=== PATIENT | male | born 1975 | race Caucasian/White ===

== ENCOUNTER 2019-06-22 04:54 | Emergency (ER) | payer OTHER ==
[~2019-06-22] VITALS: Ht 167.6 cm; Wt 142.6 kg
[2019-06-22 06:00] LABS: BASOPHIL % 0.7 % (0-2); PLATELET COUNT 259 x10^3mcL (130-400); RED CELL DISTRIBUTION WIDTH 12.9 % (11.5-14.5)
[2019-06-22 06:02] LABS: CARBON DIOXIDE 28.6 mmol/L (21-32); CHLORIDE SERUM 99 mmol/L (98-107); CREATININE SERUM 0.8 mg/dL (0.7-1.3); GFR1 > 60 mL/min; GLUCOSE SERUM 326 mg/dL (74-106); POTASSIUM SERUM 4.2 mmol/L (3.5-5.1); SODIUM SERUM 138 mmol/L (136-145)
[2019-06-22 06:08] LABS: ALBUMIN 3.9 g/dL (3.4-5.0); ALKALINE PHOSPHATASE 91 U/L (46-116); ALT/SGPT 39 U/L (16-63); AST/SGOT 14 U/L (15-37); BILIRUBIN TOTAL 0.4 mg/dL (0.20-1.00); LIPASE 795 IU/L (73-393); TOTAL PROTEIN, SERUM 7.6 g/dL (6.4-8.2)
[2019-06-22 07:43] LABS: UA SPECIFIC GRAVITY >=1.030 (1.005-1.035); microscopic required? YES; urine erythrocyte NEGATIVE (NEGATIVE)
[2019-06-22 09:06] VITALS: BP 160/97
== END 2019-06-22 09:06 | disposition home or self-care (01) ==
LOC: ED 04:54
PROVIDERS: Emergency Medicine
DX: K85.90 Acute pancreatitis without necrosis or infection, unspecified (principal); E11.65 Type 2 diabetes mellitus with hyperglycemia; E66.9 Obesity, unspecified; I10 Essential (primary) hypertension; E11.9 Type 2 diabetes mellitus without complications; Z68.43 Body mass index [BMI] 50.0-59.9, adult
CPT/HCPCS: J1885; J2405; J7030; Q0092

== ENCOUNTER 2020-05-09 06:18 | Inpatient (IN) | payer OTHER ==
[~2020-05-09] VITALS: Ht 167.6 cm; Wt 174.2 kg
[2020-05-09 07:16] LABS: BASOPHIL % 0.5 % (0-2); PLATELET COUNT 227 x10^3mcL (130-400)
[2020-05-09 07:38] LABS: CALCIUM 9.1 mg/dL (8.5-10.1); CARBON DIOXIDE 28.4 mmol/L (21-32); CHLORIDE SERUM 97 mmol/L (98-107); CREATININE SERUM 0.8 mg/dL (0.7-1.3); GFR1 > 60 mL/min; GLUCOSE SERUM 313 mg/dL (74-106); POTASSIUM SERUM 4.3 mmol/L (3.5-5.1); SODIUM SERUM 132 mmol/L (136-145)
[2020-05-09 07:42] LABS: ALBUMIN 3.7 g/dL (3.4-5.0); ALKALINE PHOSPHATASE 82 U/L (46-116); ALT/SGPT 48 U/L (16-63); AST/SGOT 32 U/L (15-37); BILIRUBIN TOTAL 0.34 mg/dL (0.20-1.00); TOTAL PROTEIN, SERUM 7.2 g/dL (6.4-8.2)
[2020-05-09 08:36] LABS: AMPHETAMINE QUAL UR NONE DETECTED (See below)
[2020-05-09] MEDS ORDERED: TENORMIN100 MG PO (08:37)
[2020-05-09] MEDS ORDERED: FORTAMET1000 MG PO (08:37)
[2020-05-09] MEDS ORDERED: TESTIM1% IJ (08:37)
[2020-05-09] MEDS ORDERED: ROSUVASTATIN CA40 MG PO (08:38)
[2020-05-09] MEDS ORDERED: HUMALOG100 UNIT/1 SQ (08:39)
[2020-05-09] MEDS ORDERED: NIA500 PO (08:39)
[2020-05-09] MEDS ORDERED: LANTI SQ (08:39)
[2020-05-09 13:24] VITALS: BP 139/84
[2020-05-09] MEDS ORDERED: ECO81 PO (15:49)
[2020-05-09] MEDS ORDERED: ACETAMINOPHEN-H1 TA1 PO (15:50)
[2020-05-09 16:20] VITALS: BP 139/84
[2020-05-09 16:23] VITALS: BP 132/78
[2020-05-09 20:40] VITALS: BP 143/93
[2020-05-10 02:20] VITALS: BP 137/83
[2020-05-10 03:44] VITALS: BP 153/95
== END 2020-05-10 04:58 | disposition short-term general hospital (02) | DRG 313 ==
LOC: ED 06:18 → DU 08:21
PROVIDERS: Emergency Medicine; ADMIT Hospitalist; ATTEND Internal Medicine Cardiovascular Disease
DX: R07.89 Other chest pain (principal); Z68.44 Body mass index [BMI] 60.0-69.9, adult; Z20.828 Contact with and (suspected) exposure to other viral communicable diseases; I10 Essential (primary) hypertension; E11.9 Type 2 diabetes mellitus without complications; E78.5 Hyperlipidemia, unspecified; E66.9 Obesity, unspecified; Z71.3 Dietary counseling and surveillance; Z79.4 Long term (current) use of insulin
CPT/HCPCS: 82962; 83880; G0378; J1650; J2270; J2405; J7030; Q0092